=== PATIENT | female | born 1950 | race Caucasian/White ===

== ENCOUNTER 2021-01-09 10:13 | Outpatient (CLI) | payer MEDICARE ==
--- NOTE | 2021-01-09 12:05 | XRAY Report ---
PROCEDURE: Chest 2 View X-Ray INDICATIONS: COUGH TECHNIQUE: 2 view(s) of the chest. COMPARISON: None. FINDINGS: Surgical changes and devices: None. Lungs and pleura: No pleural effusions or pneumothorax. Lungs are clear. Lungs are hyperexpande d suggestive COPD. Mediastinum: Mediastinal contours are normal. Heart size is normal. Bones and chest wall: No suspicious bony abnormalities. Soft tissues appear unremarkable. IMPRESSION: No acute pulmonary process. Reviewed by: Yohana Boykin MD on 01/09/2021 12:03 PM PDT Approved by: Yohana Boykin MD on 01/09/2021 12:03 PM PDT Station ID: [id number]
== END 2021-01-09 10:14 | disposition home or self-care (01) ==
LOC: DI.N 10:13
PROVIDERS: ATTEND Physician Assistant
DX: R05 Cough (principal); R63.4 Abnormal weight loss; F17.200 Nicotine dependence, unspecified, uncomplicated

== ENCOUNTER 2021-07-19 08:39 | Outpatient (CLI) | payer MEDICARE | END 2021-07-19 08:40 | disposition E | LOC: EMS 08:39 ==